=== PATIENT | male | born 1945 | race Caucasian/White ===

== ENCOUNTER → 2023-10-21 11:01 | Outpatient (REF) | payer OTHER, SELFPAY | LOC: HWRCS 11:01 | PROVIDERS: ATTENDING PHYSICIAN Internal Medicine Critical Care Medicine; FAMILY PHYSICIAN Internal Medicine | DX: R01.1 Cardiac murmur, unspecified (principal) | CPT/HCPCS: 93306 ==

== ENCOUNTER → 2024-04-01 13:23 | Outpatient (REF) | payer OTHER, SELFPAY | LOC: HWRAD 13:23 | PROVIDERS: ATTENDING PHYSICIAN Internal Medicine Critical Care Medicine; FAMILY PHYSICIAN Internal Medicine | DX: J44.9 Chronic obstructive pulmonary disease, unspecified (principal); I27.20 Pulmonary hypertension, unspecified | CPT/HCPCS: 71046 ==

== ENCOUNTER 2024-06-11 10:45 | Outpatient (RCR) | payer OTHER, SELFPAY | END 2024-06-15 10:02 | disposition home or self-care (01) | LOC: PURB 10:45 | PROVIDERS: ATTENDING PHYSICIAN Internal Medicine Critical Care Medicine; FAMILY PHYSICIAN Internal Medicine | DX: J44.9 Chronic obstructive pulmonary disease, unspecified (principal); I35.1 Nonrheumatic aortic (valve) insufficiency; I35.0 Nonrheumatic aortic (valve) stenosis; I36.1 Nonrheumatic tricuspid (valve) insufficiency; I27.20 Pulmonary hypertension, unspecified; Z87.891 Personal history of nicotine dependence; Z99.81 Dependence on supplemental oxygen | CPT/HCPCS: G0237; G0239 ==

== ENCOUNTER 2024-07-16 10:45 | Outpatient (RCR) | payer OTHER, SELFPAY | END 2024-07-16 15:00 | disposition home or self-care (01) | LOC: PURB 10:45 | PROVIDERS: ATTENDING PHYSICIAN Internal Medicine Critical Care Medicine; FAMILY PHYSICIAN Internal Medicine | DX: I27.20 Pulmonary hypertension, unspecified (principal); I35.1 Nonrheumatic aortic (valve) insufficiency; I36.1 Nonrheumatic tricuspid (valve) insufficiency; I35.0 Nonrheumatic aortic (valve) stenosis; Z87.891 Personal history of nicotine dependence | CPT/HCPCS: G0239 ==

== ENCOUNTER 2024-08-06 10:45 | Outpatient (RCR) | payer OTHER, SELFPAY | END 2024-08-06 23:59 | disposition home or self-care (01) | LOC: PURB 10:45 | PROVIDERS: ATTENDING PHYSICIAN Internal Medicine Critical Care Medicine; FAMILY PHYSICIAN Internal Medicine | DX: J98.4 Other disorders of lung (principal); J44.9 Chronic obstructive pulmonary disease, unspecified | CPT/HCPCS: G0239 ==

== ENCOUNTER 2024-09-10 10:45 | Outpatient (RCR) | payer OTHER, SELFPAY | END 2024-09-10 23:59 | disposition home or self-care (01) | LOC: PURB 10:45 | PROVIDERS: ATTENDING PHYSICIAN Internal Medicine Critical Care Medicine; FAMILY PHYSICIAN Internal Medicine | DX: J98.4 Other disorders of lung (principal); J44.9 Chronic obstructive pulmonary disease, unspecified; R09.02 Hypoxemia; J98.6 Disorders of diaphragm; Z87.891 Personal history of nicotine dependence; Z87.01 Personal history of pneumonia (recurrent); Z99.81 Dependence on supplemental oxygen | CPT/HCPCS: G0239 ==

== ENCOUNTER 2024-10-02 20:17 | Inpatient (IN) | payer OTHER, SELFPAY ==
[2024-10-02] VITALS (10 sets, daily range): BP systolic 113–147; BP diastolic 61–82; PULSE 2–77; BMI 26.1
[2024-10-02 13:23] LABS: COVID-19 Antigen Positive (Negative)
--- NOTE | 2024-10-02 16:06 | ED.GENMED ---
History of Present Illness
<Harrison Talley MD, Resident - Last Filed: 10/02/24 19:44>
General
Chief Complaint: Breathing Problem
Source: patient and spouse
Exam Limitations: none
Time Seen by Provider: 10/02/24 16:09
Nursing documentation reviewed up to this point in time: agreed with
Travel History
Have you traveled to any high risk areas for coronavirus over the past 14 days?: No
Have you had any contact with someone who has COVID-19?: Yes
Do you have any symptoms of coronavirus? Fever > 100 degrees, chills, cough, shortness of breath, sore throat, loss of taste or smell, muscle aches, or headache?: Yes
History of Present Illness
History of Present Illness:
79-year-old male with PMH of COPD on 3 L nocturnal oxygen, quit smoking 6 years ago, paralyzed right hemidiaphragm, who presents to the emergency department with increased work of breathing and hypoxia. Patient was seen with spouse at bedside, and
reports symptom onset's was last night with severe body aches, chills, nasal congestion, cough, and sore throat. Patient's spouse reports that she treated him with cold and flu medications which helped but did not resolve his symptoms. Patient
also reports worsening chills which is worse than his usual cold after thyroid ablation. He denies chest pain, fever, palpitations, nausea, vomiting, diarrhea, or leg swelling/pain. On arrival, patient was saturating at 88% on 3 L of oxygen NC and
improved to 92% on 4 L O2 NC.
Past History
<Harrison Talley MD, Resident - Last Filed: 10/02/24 19:44>
Past History
ED Past Medical History: COPD, Other (Trauma to left chest wall), Other (erectile dysfunction) and Other (Grave's disease)
ED Past Surgical History: Urological
Patient has exhibited threatening behavior?: No
PSI?: No
Social History
Tobacco: Smoker
Alcohol: Occasional
Personal:
Living: with family
Employment: Employed
Family History
Family History: Other (reviewed and noncontributory)
Review of Systems
<Harrison Talley MD, Resident - Last Filed: 10/02/24 19:44>
Review of Systems
Allergies reviewed?: Yes
All Other Systems: ROS reviewed and negative except as documented in HPI and ROS
Constitutional: Reports fatigue
EENT: Reports no symptoms
Respiratory: Reports trouble breathing
Cardiac: Reports no symptoms
ABD/GI: Reports no symptoms
: Reports no symptoms
Neurological: Reports no symptoms
Phy Exam
<Harrison Talley MD, Resident - Last Filed: 10/02/24 19:44>
General Physical Exam
General Presentation: mild distress
General age: appears stated age
General Skin: warm and dry
General Mental: alert
Cardiovascular Exam
Cardiovascular Exam: regular rate/rhythm and no edema
Pulmonary Exam
Pulmonary Exam: no cough, accessory muscle use, generalized wheezing and respiratory distress (Mild)
Oxygen Status: oxygen 4 liters via NC
Cough: no cough
Breath Sounds: Wheeze: generalized
Gastrointestinal Exam
Gastrointestinal Exam: normal bowel sounds, non tender, soft and non distended
Scores
<Harrison Talley MD, Resident - Last Filed: 10/02/24 19:44>
Heart Failure Risk
Heart Failure Risk Score: Not Applicable
Course
<Harrison Talley MD, Resident - Last Filed: 10/02/24 19:44>
Orders/Labs/Results
Orders:
Orders
10/02/24 12:57
CR Chest - 2 Views Urgent
Comment:
Reason For Exam: respiratory distress
10/02/24 13:00
COVID-19 Antigen Urgent
Source: Nasal Swab
Influenza A+B Rapid Molecular Urgent
DOUGIE Source: Nasal Swab
Specimen Description:
10/02/24 16:56
Albuterol [ProAIR HFA INHALER] 2 puff INH R NOW STA
10/02/24 16:58
Dexamethasone Sod Phosphate [Decadron] 8 mg IV NOW STA
Ipratropium/Albuterol Sulfate [Duoneb] 3 ml INH R NOW ONE
10/02/24 17:01
Basic Metabolic Panel Urgent
Complete Blood Count/With Diff Urgent
10/02/24 17:15
TSH Reflex To Free T4 Urgent
10/02/24 19:32
Admit/Transfer Patient As Directed
Co-Sign Provider:
Level of Care: Inpatient admission
Assign to:: IMU- Intermediate Care
Physician / Group: hospitalist
Diagnosis: acute respiratory failure with COVID 19
Reason for Hospitalization: respiratory failure
Expected length of stay greater than two midnights?: Yes
ELOS- Estimated Length of Stay in days: 2
I certify the patient meets the requirements for IP care: Yes
PRN Pain Medication Management As Directed
May give lesser potent ordered pain med per pt: Yes
preference::
Protocol:: Medication orders for pain may be administered in a
manner that supports deferring to patient preference
when the pt is:
- Requesting an ordered lesser potent pain medication.
Least to most potent pain medications are defined
as: acetaminophen < NSAID < tramadol < opioids
(morphine, oxycodone, hydromorphone).
- Requesting a lesser dose of the same medication IF
ORDERED.
- Requesting a less intrusive route of administration
if both routes are prescribed by the provider (PO <
IV).
10/02/24 19:34
Code Status As Directed
Resuscitation Status: Full Code
Abnormal Lab Results
10/02/24 10/02/24
13:00 17:01
MCV 98.8 H fL
(80.0-94.0)
MCH 32.9 H pg
(27.0-31.0)
Plt Count 110 L 10^3/uL
(130-400)
MPV 10.9 H fL
(7.4-10.4)
Absolute Monos (auto) 0.9 H 10^3/uL
(0.1-0.6)
Lymphocytes % 20.4 L %
(20.5-51.1)
Monocytes % 11.5 H %
(1.7-9.3)
Chloride 96 L mmol/L
(98-107)
Carbon Dioxide 32 H mmol/L
(22-30)
Creatinine 0.6 L mg/dL
(0.7-1.3)
SARS-CoV-2 Antigen Positive A
(Negative)
10/02/24 17:01
10/02/24 17:01
Vital Signs
Initial and Last Documented VS:
Initial Vital Signs
Temp Pulse Resp BP Pulse Ox
98.5 F 74 16 123/69 88
10/02/24 12:54 10/02/24 12:54 10/02/24 12:54 10/02/24 12:54 10/02/24 12:54
Last Documented Vital Signs
Temp Pulse Resp BP Pulse Ox
98.5 F 78 24 116/61 91
10/02/24 12:54 10/02/24 19:00 10/02/24 19:00 10/02/24 19:00 10/02/24 19:00
<Nayana Wong MD - Last Filed: 10/02/24 19:08>
Orders/Labs/Results
Orders:
Orders
10/02/24 12:57
CR Chest - 2 Views Urgent
Comment:
Reason For Exam: respiratory distress
10/02/24 13:00
COVID-19 Antigen Urgent
Source: Nasal Swab
Influenza A+B Rapid Molecular Urgent
DOUGIE Source: Nasal Swab
Specimen Description:
10/02/24 16:56
Albuterol [ProAIR HFA INHALER] 2 puff INH R NOW STA
10/02/24 16:58
Dexamethasone Sod Phosphate [Decadron] 8 mg IV NOW STA
Ipratropium/Albuterol Sulfate [Duoneb] 3 ml INH R NOW ONE
10/02/24 17:01
Basic Metabolic Panel Urgent
Complete Blood Count/With Diff Urgent
10/02/24 17:15
TSH Reflex To Free T4 Urgent
10/02/24 19:32
Admit/Transfer Patient As Directed
Co-Sign Provider:
Level of Care: Inpatient admission
Assign to:: IMU- Intermediate Care
Physician / Group: hospitalist
Diagnosis: acute respiratory failure with COVID 19
Reason for Hospitalization: respiratory failure
Expected length of stay greater than two midnights?: Yes
ELOS- Estimated Length of Stay in days: 2
I certify the patient meets the requirements for IP care: Yes
PRN Pain Medication Management As Directed
May give lesser potent ordered pain med per pt: Yes
preference::
Protocol:: Medication orders for pain may be administered in a
manner that supports deferring to patient preference
when the pt is:
- Requesting an ordered lesser potent pain medication.
Least to most potent pain medications are defined
as: acetaminophen < NSAID < tramadol < opioids
(morphine, oxycodone, hydromorphone).
- Requesting a lesser dose of the same medication IF
ORDERED.
- Requesting a less intrusive route of administration
if both routes are prescribed by the provider (PO <
IV).
10/02/24 19:34
Code Status As Directed
Resuscitation Status: Full Code
Abnormal Lab Results
10/02/24 10/02/24
13:00 17:01
MCV 98.8 H fL
(80.0-94.0)
MCH 32.9 H pg
(27.0-31.0)
Plt Count 110 L 10^3/uL
(130-400)
MPV 10.9 H fL
(7.4-10.4)
Absolute Monos (auto) 0.9 H 10^3/uL
(0.1-0.6)
Lymphocytes % 20.4 L %
(20.5-51.1)
Monocytes % 11.5 H %
(1.7-9.3)
Chloride 96 L mmol/L
(98-107)
Carbon Dioxide 32 H mmol/L
(22-30)
Creatinine 0.6 L mg/dL
(0.7-1.3)
SARS-CoV-2 Antigen Positive A
(Negative)
10/02/24 17:01
10/02/24 17:01
Vital Signs
Initial and Last Documented VS:
Initial Vital Signs
Temp Pulse Resp BP Pulse Ox
98.5 F 74 16 123/69 88
10/02/24 12:54 10/02/24 12:54 10/02/24 12:54 10/02/24 12:54 10/02/24 12:54
Last Documented Vital Signs
Temp Pulse Resp BP Pulse Ox
98.5 F 78 24 116/61 91
10/02/24 12:54 10/02/24 19:00 10/02/24 19:00 10/02/24 19:00 10/02/24 19:00
<Harrison Talley MD, Resident - Last Filed: 10/02/24 19:44>
MDM/Problems Addressed
Differential Diagnosis Includes:
Viral infection including COVID-19, flu, acute COPD exacerbation, acute bronchitis. Pneumonia less likely given negative x-ray. Considered PE due to his tachypnea, and dyspnea. However will hold off on PE workup as patient does not have any
pleuritic chest pain, to have or thigh pain, and swelling
MDM/Problems Addressed:
79-year-old male with PMH of COPD, who presented to the emergency department today with increased work of breathing and hypoxia. He was feeling okay until last night after dinner when he started having cough, chills, body aches, rhinorrhea and a
fever of 100.2. On arrival, patient was saturating at 88% on 3 L oxygen by nasal cannula. Patient uses 3 L oxygen by nasal cannula at home and stated that he usually saturates around 96%. His oxygen saturation improved to 92% on 4 L O2 NC.
Will obtain chest x-ray, CBC, BMP pending.
Will start DuoNebs, and Decadron
Chronic conditions affecting care: COPD
Acute Exacerbation and/or Progression of Chronic Illness: COPD
<Harrison Talley MD, Resident - Last Filed: 10/02/24 19:44>
*Radiology
Radiology exam reviewed: radiology read reviewed (NAD)
*Pulse Oximetry
Patient hypoxic: yes
Comment: 88% on 3 L O2 NC, improved to 93% on 4 L O2 NC
*Critical Care Note
Total Time (30-74mins, 75-104mins- exclusive of procedures): Not Applicable
Data Reviewed
Review of Other/Old Records Reveals: Labs and Records
<Harrison Talley MD, Resident - Last Filed: 10/02/24 19:44>
Update Note
Update Note:
CXR was remarkable for right hemidiaphragm elevation consistent with patient stated paralysis. Given patient's tachypnea with pursed lips breathing, patient was transitioned to BiPAP. Will contact hospitalist to admit patient for COVID infection.
ED Attending Note
<Harrison Talley MD, Resident - Last Filed: 10/02/24 19:44>
-
Portions of this chart may have been created with voice recognition software.� Occasional wrong word or��sound alike� substitutions may have occurred due to the inherent limitations of voice recognition software.
<Nayana Wong MD - Last Filed: 10/02/24 19:08>
ED Attending Note
Patient seen and examined by attending physician: Yes
I performed a history and physical exam of patient and discussed management with resident, I reviewed resident's note and agree with documented findings and plan of care.: Yes
ED Attending Note:
I have seen and evaluated the patient with a [id number]-sw-[id number] encounter. I have spoken to the [resident] and involved in the medical history, the physical exam, medical decision making.
Evaluation and management service: agree unless noted differently below.
Results interpretation: agree unless noted differently below.
79-year-old male with history of COPD on nocturnal oxygen presented to the emergency department with cough. Patient states that yesterday he was feeling fine up until the evening when he had sudden onset of cough congestion runny nose body aches
and chills. This morning he woke up with the ongoing symptoms today brought him in for further evaluation. He denies any chest pain or shortness of breath. No nausea vomiting. No diarrhea. He has been in contact with few people who have been
sick with similar symptoms. He did not take his albuterol today.
GENERAL: in no acute distress
HEENT: normocephalic, extraocular movements intact, moist oral mucosa
NECK: normal inspection
RESPIRATORY: Mild respiratory distress, tachypneic, pursed lip breathing, diminished breath sounds in all lung farr
CARDIOVASCULAR: regular rate and rhythm
ABDOMEN/: soft, non-distended, non-tender to palpation, no rebound or guarding
EXTREMITIES: non-tender, no edema/swelling
NEUROLOGIC: awake and alert, moves all extremities
SKIN: warm
79-year-old male with history of COPD on nocturnal oxygen presenting to the emergency department with 1 day of cough congestion runny nose body aches and chills. On arrival here patient was 88%. He was placed on nasal cannula. During my
evaluation patient is on 4 L and he will be anywhere from 89% to 92%. Concern for viral infection versus pneumonia for COPD exacerbation. Swabs were obtained prior to my evaluation. He is COVID-positive. Chest x-ray per my interpretation with
elevated right hemidiaphragm consistent with patient's paralysis. Will obtain blood work and give Decadron and a DuoNeb. Consider initiating BiPAP given tachypnea and pursed lip breathing however will start off with DuoNeb.
On reevaluation patient continues to have mild respiratory distress with pursed lip breathing and use of accessory muscles. Patient placed on BiPAP. On reassessment patient appears much more comfortable. Blood work is unremarkable. discussed
with hospitalist for admission.
Discharge Plan
Departure
Patient Disposition: Admit
Date of Disposition: 10/02/24
Time of Disposition: 18:56
Presentation/result/management discussed w/ accepting MD/DO: Hospitalist
Patient with high blood pressure during this ER visit?: Yes
Condition: Fair
Covid-19: Confirmed COVID-19
Discharge Problem:
History of prostate cancer, Former smoker, Hypoxia, Paralysis, diaphragm, COPD exacerbation, COVID-19
Instructions: Shortness of Breath (Dyspnea) (DC), BLOOD PRESSURE
Prescriptions:
No Action
ibuprofen 200 mg Tablet
400 mg PO DAILYPRN PRN (Reason: mild pain)
albuterol sulfate 90 mcg/actuation Hfa Aerosol Inhaler
2 puff INHALATION R Q6HPRN PRN (Reason: sob)
levothyroxine [Synthroid] 112 mcg Tablet
112 mcg PO DAILY
Asmanex Twisthaler 220 mcg/ actuation (120) Aerosol Powdr Breath Activated
2 inh INHALATION R BID
calcium carbonate-vitamin D3 [Calcium 600 + D(3)] 600 mg-10 mcg (400 unit) Tablet
1 tab PO NOON Qty: 0
guaifenesin [Mucinex] 1,200 mg Tablet Extended Release 12hr
600 mg PO BIDPRN PRN (Reason: cough)
coQ10 (ubiquinol) [Qunol Moi CoQ10] 100 mg Capsule
100 mg PO NOON Qty: 0
Stiolto Respimat 2.5-2.5 mcg/actuation Mist
2 puff INHALATION R QPM
gphvz-as-4-ihv-iov-wstlaxi-ast [[place]-3 Krill Oil] 233-41-87-50 mg Capsule
1 cap PO QPM Qty: 0
Centrum Silver Men 671-04-939-300 mcg Tablet
1 tab PO NOON
Referrals:
Chelsey Mak MD [Family Provider] -
Interventions
Interventions:
*Risk Screen - Suicide Last Done: 10/02/24 12:54
*Neglect/Abuse Screening Last Done: 10/02/24 12:54
ED- Fall Risk Assessment Last Done: 10/02/24 16:03
ED- Cardiac Assessment Last Done: 10/02/24 16:03
ED- Pulmonary Assessment Last Done: 10/02/24 16:03
Discharge Date and Time
Print Language: UKRAINIAN
[2024-10-02] MEDS: DECADRON 8 MG IV (17:01)
[2024-10-02] MEDS: DUONEB 3 ML INH (17:01)
[2024-10-02 17:31] LABS: Blood Urea Nitrogen 13 mg/dl (9-20); Calcium 8.5 mg/dl (8.4-10.2); Carbon Dioxide 32 mmol/L (22-30); Chloride 96 mmol/L (98-107); Glucose 93 mg/dl (70-99); Sodium 135 mmol/L (135-145); eGFR > 60.00
[2024-10-02 17:36] LABS: % Basophils 0.5 % (0-2); % Eosinophils 0.1 % (0-6); % Immature Granulocytes 0.3 % (0-0.5); % Lymphocytes 20.4 % (20.5-51.1); % Monocytes 11.5 % (1.7-9.3); % Neutrophils 67.2 % (42.2-75.2); Absolute Lymphocytes 1.5 10^3/uL (1.2-3.4); Absolute Monocytes 0.9 10^3/uL (0.1-0.6); Hematocrit 50.1 % (39.0-52.0); Hemoglobin 16.7 g/dL (13.0-18.0); Mean Corp Hgb Conc. 33.3 g/dL (33.0-37.0); Mean Corpuscular Hgb 32.9 pg (27.0-31.0); Mean Corpuscular Volume 98.8 fL (80.0-94.0); Mean Platelet Volume 10.9 fL (7.4-10.4); Nucleated Red Blood Cells % 0 % (-); Platelet Count 110 10^3/uL (130-400); Red Blood Cell Count 5.07 10^6/uL (4.70-6.10); Red Cell Dist. Width 12.4 % (11.5-14.5); White Blood Cell Count 7.4 10^3/uL (4.8-10.8)
[2024-10-02 18:02] LABS: TSH Reflex To Free T4 0.83 uIU/ml (0.47-4.68)
--- NOTE | 2024-10-02 19:21 | HPS.HSE ---
Family Physician
-
Family Physician: Chelsey Mak
Chief Complaint
-
Shortness of breath
History of Present Illness
This is an 79-year-old who has past medical history significant for COPD on 3 L nocturnal home O2, a collapsed right diaphragm, Graves' disease status post thyroid ablation with subsequent hypothyroid presenting to the emergency department with
fever and shortness of breath and found to have COVID.
A symptoms began abruptly yesterday. He reported to his that he did not feel well. He was slowing down and after dinner he was reported to have crashed. He reported a fever to 100.6 at home. He had chills and generalized aches and pains.
Family thought that he might have had the flu and he was giving dliw-vpd-khbyzkr medications with initial improvement. Patient was able to sleep. In the a.m. he felt worse and family decided to bring him to the emergency department later on that
day. He desatted to 88% en route to the emergency department. Denies any productive cough. No clear sick contacts. No recent travel. He denies any chest pain, orthopnea or PND.
Patient had undergone pulmonary rehab and was able to exercise for several minutes on a treadmill prior to this episode.
In the emergency department he had a temp of 98.5 blood pressure 147/80 with a pulse of 83. He was satting 91% on supplemental oxygen. He was immediately placed on BiPAP in the ED. Chest x-ray was unremarkable for any acute infiltrates. CBC
shows no leukocytosis normal hemoglobin and platelet count. Electrolytes BUN/creatinine were unremarkable. COVID test was positive. Influenza was negative.
Medical History
Past Medical History
Past Medical History: Reports Cancer (Prostate cancer status post prostatectomy), COPD (On 3 L nocturnal O2) and Hypothyroidism
Additional Past Medical History:
Right diaphragmatic paralysis
Past Surgical History: Reports Urological (Prostatectomy)
Social History
Tobacco: Former Smoker
Alcohol: None
Drug: None
Personal:
Living: With Family
Employment: Retired
Family History
Family History: Not pertinent
Allergies / Home Medications
Allergies reflects when Allergies were last updated in [employer].
Home Medications with original date entered in [employer]
Allergy/Medication List:
Allergies
Allergy/AdvReac Type Severity Reaction Status Date / Time
No Known Allergies Allergy Verified 10/02/24 12:53
Home Medications
albuterol sulfate 90 mcg/actuation aerosol inhaler 2 puff inhalation R Q6HPRN PRN sob 09/27/23
calcium 600 mg (as carbonate)-vitamin D3 10 mcg (400 unit) tablet (Calcium 600 + D(3)) 1 tab PO NOON ##0 09/27/23
coQ10 (ubiquinol) 100 mg capsule (Qunol Moi CoQ10) 100 mg PO NOON ##0 09/27/23
guaifenesin 1,200 mg tablet, extended release 12 hr (Mucinex) 600 mg PO BIDPRN PRN cough 09/27/23
ibuprofen 200 mg tablet 400 mg PO DAILYPRN PRN mild pain 09/27/23
krill 350 mg-omega-3 90 mg-dha 24 mg-epa 50 wo-jwvkqzm-guefs capsule ([place]-3 Krill Oil) 1 cap PO QPM ##0 09/27/23
levothyroxine 112 mcg tablet (Synthroid) 112 mcg PO DAILY 09/27/23
mometasone 220 mcg/actuation(120 doses)breath activated powder inhaler (Asmanex Twisthaler) 2 inh inhalation R BID 09/27/23
fogniixw-ze-oepqy 300 mcg-K 60 mcg-lycop 600 mcg-lutein 300 mcg tablet (Centrum Silver Men) 1 tab PO NOON supplement 09/27/23
tiotropium 2.5 mcg-olodaterol 2.5 mcg/actuation mist for inhalation (Stiolto Respimat) 2 puff inhalation R QPM 09/27/23
Review of Systems
-
History Source: Patient and Family
Constitutional: Reports Fever
EENT: Reports No Symptoms
Respiratory: Reports Trouble Breathing
Cardiac: Reports No Symptoms
Abdomen/GI: Reports No Symptoms
: Reports No Symptoms
Musculoskeletal: Reports No Symptoms
Skin: Reports No Symptoms
Neurological: Reports No Symptoms
Endocrine: Reports No Symptoms
Hematologic/Lymphatic: Reports No Symptoms
Psych: Reports No Symptoms
Physical Exam
Vital Signs
Vital Signs
Temp Pulse Resp BP Pulse Ox
98.5 F 78 24 116/61 91
10/02/24 12:54 10/02/24 19:00 10/02/24 19:00 10/02/24 19:00 10/02/24 19:00
Physical Exam
General: Well Developed, Well Nourished and Respiratory Distress
HEENT: NormoCephalic, Anicteric, Moist mucous membranes, Atraumatic, PERRLA, No Ptosis and Oxygen
Respiratory: Clear, Non Labored Respirations and Decreased Breath Sounds
Cardiac: S1/S2 and Regular Rhythm
Breast: Deferred by me
GI: Soft, Non Tender, Non Distended and Normal Bowel Sounds
Rectal: Deferred by Provider
Genito-urinary: Deferred by me
Musculoskeletal: No Clubbing, No Cyanosis and No Edema
Skin: Warm and Dry
Neuro: AO x 3 and Nonfocal/grossly intact
Hematologic/Lymphatic: No Lymphadenopathy
Psych: Calm
Laboratory Results
-
10/02/24 17:01
10/02/24 17:01
Laboratory Results
pH Cancelled 10/02/24 16:56
pCO2 Cancelled 10/02/24 16:56
pO2 Cancelled 10/02/24 16:56
HCO3 Cancelled 10/02/24 16:56
Data Reviewed
-
Diagnostic Radiology: Image Personally Visualized and interpreted and Report Reviewed by me
Lab Data: Labs Reviewed by me
Old Records: Reviewed
Impression/Plan
-
IMPRESSION:
79 y.o male with h/o COPD on 3 L nocturnal home O2, R diaphragm paralysis presenting with fever at home, hypoxia, respiratory distress and found to have COVID 19. No acute infiltrates on Xray. Acute onset of symptoms starting about 24 hours ago.
No wheezing, cough, leukocytosis. Placed on BIPAP in ED due to rapid shallow breathing that appears to be common for him. Given degree of underlying pulmonary compromise and hypoxia he is at very high risk for decompensation. He reports up to
date COVID immunizations.
PLAN:
1. COVID 19 infection with acute on chronic respiratory failure.
- admit to IMU
- dexamethasone 6mg iv
- remdesivir
- continue bipap 10/5 for now, 6 L O2, wean as tolerated
- continue home tiotropium, and LABA
- morning blood gas
- pulmonary consult
DVT PPX - lovenox
Code status - full code
[2024-10-02] MEDS: VEKLURY 250 MG IV (22:03)
[2024-10-02] MEDS: MUCINEX 600 MG PO (22:03)
[2024-10-02] MEDS: LOVENOX 40 MG SC (22:03)
[2024-10-02] MEDS: ROBITUSSIN DM 10 ML PO (22:08)
[2024-10-03] VITALS (13 sets, daily range): BP systolic 94–158; BP diastolic 55–111; PULSE 2–74
[2024-10-03 04:25] LABS: Venous Blood Gas B.E. 2.4 mmol/L (-4 to +4); Venous Blood Gas HCO3 28.9 mmol/L (22-27); Venous Blood Gas O2 Sat % 99.5 %; Venous Blood Gas pCO2 50 mmHg (35-48); Venous Blood Gas pH 7.37 (7.32-7.43); Venous Blood Gas pO2 159 mmHg (30-50)
[2024-10-03 04:31] LABS: Venous Blood Gas O2 Therapy 40%
[2024-10-03 04:44] LABS: INR 1.17; PT 15.2 Sec (11.4-14.6)
[2024-10-03 05:08] LABS: ALT (SGPT) 13 U/L (0-50); AST (SGOT) 23 U/L (17-59); Albumin 3.9 g/dl (3.5-5.0); Alkaline Phosphatase 57 U/L (38-126); Blood Urea Nitrogen 12 mg/dl (9-20); Calcium 8.6 mg/dl (8.4-10.2); Carbon Dioxide 29 mmol/L (22-30); Chloride 99 mmol/L (98-107); Estimated Creatinine Clearance 90 ml/min; Glucose 142 mg/dl (70-99); LDH 151 U/L (120-246); Magnesium 1.9 mg/dl (1.6-2.3); Potassium 4.4 mmol/L (3.5-5.1); Sodium 136 mmol/L (135-145); Total Bilirubin 0.6 mg/dl (0.2-1.3); Total Protein 6.2 g/dl (6.3-8.2); eGFR > 60.00
[2024-10-03] MEDS: SYNTHROID 112 MCG PO (05:42)
--- NOTE | 2024-10-03 08:14 | W.PN.HOSP.TC ---
Today's Communication/Plan
-
see bold
Assessment / Plan
Assessment / Plan
79 y.o male with h/o COPD on 3 L nocturnal home O2, R diaphragm paralysis presenting with fever at home, hypoxia, respiratory distress and found to have COVID 19. No acute infiltrates on Xray. Acute onset of symptoms starting about 24 hours ago.
No wheezing, cough, leukocytosis. Placed on BIPAP in ED due to rapid shallow breathing that appears to be common for him. Given degree of underlying pulmonary compromise and hypoxia he is at very high risk for decompensation. He reports up to
date COVID immunizations.
#Acute coronavirus infection
#Acute on chronic hypoxic respiratory failure
#COPD on 3 L of oxygen at baseline
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
#Former smoker
Patient is up-to-date with COVID vaccinations
Currently on BiPAP, wean as tolerated
Pulmonology consulted, continue IV steroids, IV remdesivir, bronchodilators
#Hypothyroidism
#History of Graves' disease
Continue Synthroid
#History prostate cancer status post prostatectomy
DVT PPX -subcu Lovenox
Code status - Full code
Total time spent to see the patient on the floor, examine the patient, review data and lab results, discuss treatment plan with patient, nursing staff around 45 minutes.
Physical Exam
General: Appears to not feel well, no acute distress
HEENT: Normocephalic, Atraumatic, EOMI, MMM
Respiratory: Clear to Auscultation bilaterally
Cardiac: Normal S1/S2, Regular Rate and Rhythm
GI: Soft, Nontender, Nondistended, Normal Bowel Sounds
Extremities: No Clubbing, Cyanosis, or Edema
Neuro: Nonfocal/Grossly Intact
Psych: Calm, Cooperative
Derm: No Visible lesions
Anticipated Discharge: > 48 hours
Subjective/Interval History
-
Date of Service: October 03, 2024
Patient continues to cough, productive. Denies shortness of breath, denies chest pain. No fever, no vomiting.
Objective Data
-
Labs:
Laboratory Results
10/03/24
04:09
PT 15.2 H
INR 1.17
Sodium 136
Potassium 4.4
Chloride 99
Carbon Dioxide 29
BUN 12
Creatinine 0.6 L
Glucose 142 H
Calcium 8.6
Total Bilirubin 0.6
AST 23
ALT 13
Alkaline Phosphatase 57
Vital Signs:
Vital Signs
Temp Pulse Resp BP Pulse Ox
97.7 F 69 19 99/63 92
10/03/24 04:15 10/03/24 06:45 10/03/24 06:45 10/03/24 06:00 10/03/24 06:45
I&O
10/02/24 10/03/24 10/04/24
06:59 06:59 06:59
Intake Total 250 / 250
Output Total 550 / 550
Balance -300 / -300
[2024-10-03] MEDS: DECADRON 6 MG IV (09:36)
[2024-10-03] MEDS: MUCINEX 600 MG PO ×2 (09:37→19:24)
[2024-10-03] MEDS: VEKLURY 250 MG IV (13:17)
[2024-10-03] MEDS: LOVENOX 40 MG SC (19:24)
[2024-10-03] MEDS: SPIRIVA RESPIMAT 2.5 MCG 2 PUFF INH (19:44)
[2024-10-03] MEDS: STRIVERDI RESPIMAT 2 PUFF INH (19:44)
[2024-10-04] VITALS (13 sets, daily range): BP systolic 105–152; BP diastolic 60–103
[2024-10-04] MEDS: SYNTHROID 112 MCG PO (05:35)
--- NOTE | 2024-10-04 07:54 | W.PN.HOSP.TC ---
Today's Communication/Plan
-
see bold
Assessment / Plan
Assessment / Plan
79 y.o male with h/o COPD on 3 L nocturnal home O2, R diaphragm paralysis presenting with fever at home, hypoxia, respiratory distress and found to have COVID 19. No acute infiltrates on Xray. Acute onset of symptoms starting about 24 hours ago.
No wheezing, cough, leukocytosis. Placed on BIPAP in ED due to rapid shallow breathing that appears to be common for him. Given degree of underlying pulmonary compromise and hypoxia he is at very high risk for decompensation. He reports up to
date COVID immunizations.
#Acute coronavirus infection
#Acute on chronic hypoxic respiratory failure
#COPD on 3 L of oxygen at baseline
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
#Former smoker
Patient is up-to-date with COVID vaccinations
Status post BiPAP, currently on 6 L of oxygen. He wears 3 L of oxygen at night at baseline
Continue dexamethasone 6 mg IV day 3, remdesivir day 3, bronchodilators
#Hypothyroidism
#History of Graves' disease
Continue Synthroid
#History prostate cancer status post prostatectomy
DVT PPX -subcu Lovenox
Code status - Full code
Updated [id number] on phone 10/04
Total time spent to see the patient on the floor, examine the patient, review data and lab results, discuss treatment plan with patient, nursing staff around 42 minutes.
Physical Exam
General: No acute distress
HEENT: Normocephalic, Atraumatic, EOMI, MMM
Respiratory: Clear to Auscultation bilaterally
Cardiac: Normal S1/S2, Regular Rate and Rhythm
GI: Soft, Nontender, Nondistended, Normal Bowel Sounds
Extremities: No Clubbing, Cyanosis, or Edema
Neuro: Nonfocal/Grossly Intact
Psych: Calm, Cooperative
Derm: No Visible lesions
Anticipated Discharge: > 48 hours
Subjective/Interval History
-
Date of Service: October 04, 2024
Patient denies chest pain, denies shortness of breath. He does have a productive cough, that is improving. No nausea, no vomiting. No abdominal pain. No diarrhea. No fever.
Objective Data
-
Vital Signs:
Vital Signs
Temp Pulse Resp BP Pulse Ox
97.6 F 77 17 105/63 93
10/04/24 03:00 10/04/24 04:00 10/04/24 04:00 10/04/24 04:00 10/04/24 04:00
I&O
10/03/24 10/04/24 10/05/24
06:59 06:59 06:59
Intake Total 250 / 250 730 / 730
Output Total 550 / 550 1175 / 1175
Balance -300 / -300 -445 / -445
[2024-10-04] MEDS: MUCINEX 600 MG PO ×2 (09:24→19:44)
[2024-10-04] MEDS: DECADRON 6 MG IV (09:24)
[2024-10-04] MEDS: VEKLURY 250 MG IV (13:22)
--- NOTE | 2024-10-04 16:16 | CM ---
CM reviewed chart, placed call to patients Camelia [phone] to complete initial assessment. Per , patient resides in a single story home, no steps to enter. Patient does not use any DME, has nocturnal O2 through [address] [place] [address] in
[place]. Patient has history with VN, denies SNF. Patient PCP Chelsey Mak, pharmacy [facility], confirms prescription coverage through [place]. requesting PT/OT to work with patient when medically able, asking for update from Hospitalist
when able. CM will continue to follow for all discharge planning needs.
Plan; home with , watch for VN needs vs SNF.
[2024-10-04] MEDS: LOVENOX 40 MG SC (19:44)
[2024-10-04] MEDS: SPIRIVA RESPIMAT 2.5 MCG 2 PUFF INH (20:03)
[2024-10-04] MEDS: STRIVERDI RESPIMAT 2 PUFF INH (20:04)
[2024-10-05] VITALS (12 sets, daily range): BP systolic 87–143; BP diastolic 58–97; PULSE 101; O2SAT 93
--- NOTE | 2024-10-05 03:13 | PTCARENOTE ---
PT appearing to get rest through out night, respirations even unlabored. Pt continues on 6L NC, Spo2 91-93% dependant on position. Pt has no complaints at this time. Assessment care and vitals as charted.
[2024-10-05] MEDS: SYNTHROID 112 MCG PO (05:32)
[2024-10-05 05:56] LABS: Hematocrit 51.6 % (39.0-52.0); Hemoglobin 17.3 g/dL (13.0-18.0); Mean Corp Hgb Conc. 33.5 g/dL (33.0-37.0); Mean Corpuscular Hgb 32.4 pg (27.0-31.0); Mean Corpuscular Volume 96.6 fL (80.0-94.0); Mean Platelet Volume 11.2 fL (7.4-10.4); Platelet Count 139 10^3/uL (130-400); Red Blood Cell Count 5.34 10^6/uL (4.70-6.10); Red Cell Dist. Width 12.1 % (11.5-14.5)
[2024-10-05 06:29] LABS: ALT (SGPT) 16 U/L (0-50); AST (SGOT) 27 U/L (17-59); Albumin 3.6 g/dl (3.5-5.0); Alkaline Phosphatase 55 U/L (38-126); Blood Urea Nitrogen 26 mg/dl (9-20); Carbon Dioxide 33 mmol/L (22-30); Chloride 98 mmol/L (98-107); Estimated Creatinine Clearance 90 ml/min; Glucose 129 mg/dl (70-99); Potassium 4.7 mmol/L (3.5-5.1); Sodium 137 mmol/L (135-145); Total Bilirubin 0.6 mg/dl (0.2-1.3); Total Protein 5.8 g/dl (6.3-8.2); eGFR > 60.00
[2024-10-05 06:39] LABS: Procalcitonin < 0.05 ng/ml (0.0-0.25)
[2024-10-05] MEDS: DECADRON 6 MG IV (08:43)
[2024-10-05] MEDS: MUCINEX 600 MG PO ×2 (08:44→20:19)
--- NOTE | 2024-10-05 11:38 | W.PN.HOSP.TC ---
Addendum entered and electronically signed by Jomar Michelle MD 10/06/24 10:12:
.
Original Note:
Today's Communication/Plan
-
see bold
Assessment / Plan
Assessment / Plan
79 y.o male with h/o COPD on 3 L nocturnal home O2, R diaphragm paralysis presenting with fever at home, hypoxia, respiratory distress and found to have COVID 19. No acute infiltrates on Xray. Acute onset of symptoms starting about 24 hours ago.
No wheezing, cough, leukocytosis. Placed on BIPAP in ED due to rapid shallow breathing that appears to be common for him. Given degree of underlying pulmonary compromise and hypoxia he is at very high risk for decompensation. He reports up to
date COVID immunizations.
Gen: NAD, AAOx3.
Eyes: EOMI, PERRLA, no scleral icterus.
Neck: supple.
CV: RRR, +S1/S2, no m/r/g.
Resp: distant BS CTAB, no rales, wheezes, or rhonchi.
Abd: +BS, soft, NT, ND
Skin: No rashes.
Neuro: CN 2-12 intact, non-focal.
Psych: Normal mood and affect.
CXR: No acute cardiopulmonary process.
Acute on chronic hypoxic respiratory failure due to acute COVID infection:
-underlying COPD on 3L NC O2 HS (former smoker), chronic right diaphragmatic paralysis due to trauma of right chest wall
-up-to-date with COVID vaccinations
-was on BiPAP, currently on 5-6L NC O2
-cont Decadron
-currently on Remdesivir, will stop as unlikely to be of any benefit
-c/s pulm
-cont Spiriva/Striverdi
Hypothyroidism:
-h/o Graves' disease
-cont Synthroid
h/o prostate CA s/p prostatectomy
FULL/Lovenox
Anticipated Discharge: 24 - 48 hours
Subjective/Interval History
-
Date of Service: October 05, 2024
Denies SOB.
Objective Data
-
Labs:
Laboratory Results
10/05/24
05:34
WBC 11.0 H
Hgb 17.3
Hct 51.6
Plt Count 139 D
Sodium 137
Potassium 4.7
Chloride 98
Carbon Dioxide 33 H
BUN 26 H
Creatinine 0.6 L
Glucose 129 H
Calcium 9.0
Total Bilirubin 0.6
AST 27
ALT 16
Alkaline Phosphatase 55
Vital Signs:
Vital Signs
Temp Pulse Resp BP Pulse Ox
97.3 F 68 19 121/80 94
10/05/24 07:19 10/05/24 06:00 10/05/24 06:00 10/05/24 06:00 10/05/24 06:00
I&O
10/04/24 10/05/24 10/06/24
06:59 06:59 06:59
Intake Total 730 / 730 200 / 200
Output Total 1175 / 1175 1100 / 1100
Balance -445 / -445 -900 / -900
--- NOTE | 2024-10-05 11:54 | CM ---
CM following re: discharge planning.
Reviewed pt's chart.
Per chart review, pt's spouse is requested pt be evaluated by PT and OT.
PT and OT consults requested.
D/C plan: awaiting for PT/OT evaluations and recommendations.
CM will follow with discharge plan updates as hospitalization progresses
[2024-10-05] MEDS: VEKLURY IV (13:17)
--- NOTE | 2024-10-05 15:48 | CON.PUL ---
Consultation
Consultation Request
Date/Time Consultation Requested: 10/05/24
Date/Time Consultation Performed: 10/05/24
Performing Provider: Kristina
Reason for Consultation: COVID
Medical History
-
History of Present Illness:
Patient is an 79-year-old male with past medical history of COPD on 3 L nocturnal O2, Graves' disease presenting to the ER with fever and shortness of breath. He has noted to be COVID-positive. He was notably hypoxemic, placed on 6 L. Chest x-ray
was unremarkable. He has never had COVID before. He routinely obtains his vaccinations. He follows with Dr. Garcia in the office.
Past Medical History
Past Medical History: Other (see list below)
Social History
Tobacco: Former Smoker
Alcohol: None
Drug: None
Family History
Family History: Reviewed & Not Pertinent
Allergies / Home Medications
Allergies
Allergy/AdvReac Type Severity Reaction Status Date / Time
No Known Allergies Allergy Verified 10/02/24 12:53
Home Medications
�Medication �Instructions �Recorded �Confirmed �Last Taken �Type
albuterol sulfate 90 mcg/actuation 2 puff inhalation R Q6HPRN PRN sob 09/27/23 10/02/24 09/26/23 History
aerosol inhaler
calcium 600 mg (as 1 tab PO NOON ##0 09/27/23 10/02/24 09/26/23 History
carbonate)-vitamin D3 10 mcg (400
unit) tablet (Calcium 600 + D(3))
coQ10 (ubiquinol) 100 mg capsule 100 mg PO NOON ##0 09/27/23 10/02/24 09/26/23 History
(Qunol Moi CoQ10)
guaifenesin 1,200 mg tablet, 600 mg PO BIDPRN PRN cough 09/27/23 10/02/24 2 Days Ago History
extended release 12 hr (Mucinex) ~09/25/23
ibuprofen 200 mg tablet 400 mg PO DAILYPRN PRN mild pain 09/27/23 10/02/24 09/26/23 History
krill 350 mg-omega-3 90 mg-dha 24 1 cap PO QPM ##0 09/27/23 10/02/24 09/25/23 History
mg-epa 50 xg-jugqfgg-gzguz capsule
([place]-3 Krill Oil)
levothyroxine 112 mcg tablet 112 mcg PO DAILY 09/27/23 10/02/24 09/27/23 History
(Synthroid)
mometasone 220 mcg/actuation(120 2 inh inhalation R BID 09/27/23 10/02/24 09/26/23 History
doses)breath activated powder
inhaler (Asmanex Twisthaler)
qjcojogq-vh-hvbaw 300 mcg-K 60 1 tab PO NOON supplement 09/27/23 10/02/24 09/25/23 History
mcg-lycop 600 mcg-lutein 300 mcg
tablet (Centrum Silver Men)
tiotropium 2.5 mcg-olodaterol 2.5 2 puff inhalation R QPM 09/27/23 10/02/24 09/26/23 History
mcg/actuation mist for inhalation
(Stiolto Respimat)
Review of Systems
-
History Source: Patient
All other systems: Negative unless noted
Vitals / Labs / Diagnostic Testing
Vital Signs
Temp Pulse Resp BP Pulse Ox
97.3 F 96 23 123/97 93
10/05/24 07:19 10/05/24 14:01 10/05/24 14:01 10/05/24 14:01 10/05/24 15:39
Lab Data
10/05/24 05:34
10/05/24 05:34
Microbiology
10/02/24 13:00 Nasal Swab Influenza Types A & B (DAQUAN) - Final
Negative for Influenza A & B, NAAT
Negative results must be combined with clinical observations
and patient history.
Nucleic Acid Amplification test (NAAT)performed on the
[employer] platform.
Diagnostic Testing:
Physical Exam
-
HEENT: Normocephalic, Anicteric and Moist Mucous Membranes
Cardiovascular: S1/S2 and Regular Rhythm
Respiratory: Clear and Non-Labored Respirations
GI: Soft, Non Distended and Non Tender
Neurology: Awake, Alert, Oriented and No Motor Deficits
Skin: Warm, Dry and Good Color
General: Comfortable and Other (NAD)
Assessment
-
Patient is an 79-year-old male with past medical history of COPD on 3 L nocturnal O2, Graves' disease presenting to the ER with fever and shortness of breath. He has noted to be COVID-positive. He was notably hypoxemic, placed on 6 L. Chest x-ray
was unremarkable. He has never had COVID before. He routinely obtains his vaccinations. He follows with Dr. Garcia in the office.
Acute on chronic resp failure
Acute COVID+ illness
Acute on chronic SOB
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
COPD (on Noct home O2)
Trauma to right chest wall with paralyzed right dome of diaphragm
Grave's disease
Former smoker, 2-3 ppwk for 40 y, quit 5-6 y ago
Plan
Continue O2 protocol, currently 93% on 6L NC
Already on nocturnal O2 at home: 3LPM
Wean as tolerated back to baseline use
Note CXR clear on admission, has chronic R elev HD
Currently on IV steroids and mucinex
Resumed on home inhalers
Does not appear in acute exac COPD
PCT negative, no clear evidence for abx
Isolation per hospital protocol
No treatment recs for inpatient admissions for COVID, just symptomatic treatment
Continue to monitor inflammatory markers as indicated
Follow fever curve
CXR reviewed--Repeat only as necessary to limit testing/exposures
F/u with Dr Garcia in 3-4 wks post discharge
D/w Mr Zuniga, all questions answered to satisfaction
We will follow
Diagnostic Data:
CXR 10/02/24- No acute cardiopulmonary process.
CXR 09-27-23 c/w 09-09-22: baseline with no infiltrates. New R basilar infiltrate vs fluid
LDCT 03-09-21: no lung nodules
Total time spent on this consultation __75__ minutes which includes review of history, physical exam, medications, laboratory data, personal review of imaging, extensive review of outpatient records, discussion with care team and respiratory therapy.
--- NOTE | 2024-10-05 17:46 | PTCARENOTE ---
pt downgraded to med surg. transferring to [address] [place] [address]. report given to Savi.
[2024-10-05] MEDS: STRIVERDI RESPIMAT 2 PUFF INH (19:23)
[2024-10-05] MEDS: SPIRIVA RESPIMAT 2.5 MCG 2 PUFF INH (19:24)
[2024-10-05] MEDS: LOVENOX 40 MG SC (20:19)
--- NOTE | 2024-10-05 23:05 | PTCARENOTE ---
Received patient at change of shift via a transfer from IMU, he is AAOx3 offering no complaints, currently on 5l of 02 pulse ox stable, he was up in chair having his dinner, no skin issues, coarse lung sounds, bedside suction provided to patient per
his request. no pain
[2024-10-06] MEDS: SYNTHROID 112 MCG PO (06:10)
[2024-10-06 07:13] VITALS: BP 106/63
--- NOTE | 2024-10-06 09:04 | W.PN.HOSP.TC ---
Today's Communication/Plan
-
d/c
Assessment / Plan
Assessment / Plan
79 y.o male with h/o COPD on 3 L nocturnal home O2, R diaphragm paralysis presenting with fever at home, hypoxia, respiratory distress and found to have COVID 19. No acute infiltrates on Xray. Acute onset of symptoms starting about 24 hours ago.
No wheezing, cough, leukocytosis. Placed on BIPAP in ED due to rapid shallow breathing that appears to be common for him. Given degree of underlying pulmonary compromise and hypoxia he is at very high risk for decompensation. He reports up to
date COVID immunizations.
Gen: NAD, AAOx3.
Eyes: EOMI, PERRLA, no scleral icterus.
Neck: supple.
CV: remains RRR, +S1/S2, no m/r/g.
Resp: CTAB anteriorly, no rales, wheezes, or rhonchi.
Abd: +BS, soft, NT, ND
Skin: No rashes.
Neuro: remains CN 2-12 intact, non-focal.
Psych: Normal mood and affect.
CXR: No acute cardiopulmonary process.
Acute on chronic hypoxic respiratory failure due to acute COVID infection:
-no acute exac of COPD as per pulm
-underlying COPD on 3L NC O2 HS (former smoker), chronic right diaphragmatic paralysis due to trauma of right chest wall
-up-to-date with COVID vaccinations
-was on BiPAP, currently on 4L NC O2
-has been on Decadron. Case discussed with Dr. Acevedo and she is OK with d/c today on Prednisone. Pt can wean O2 at home.
-was on Remdesivir which was stopped 10/05/24 as unlikely was of any benefit
-cont Spiriva/Striverdi
Hypothyroidism:
-h/o Graves' disease
-cont Synthroid
h/o prostate CA s/p prostatectomy
FULL/Lovenox
Total time spent on d/c = 34 min. This included today's physical exam, progress note, review of laboratory and diagnostic data, preparation of discharge documents and prescriptions, and discussions about the pt's hospital course and discharge plan
with the patient and other front office medical assistant involved in the patient's care.
Anticipated Discharge: Today
Subjective/Interval History
-
Date of Service: October 06, 2024
Denies SOB.
Objective Data
-
Vital Signs:
Vital Signs
Temp Pulse Resp BP Pulse Ox
97.8 F 68 17 106/63 94
10/06/24 07:13 10/06/24 07:13 10/06/24 07:13 10/06/24 07:13 10/06/24 07:13
I&O
10/05/24 10/06/24 10/07/24
06:59 06:59 06:59
Intake Total 200 / 200 480 / 480
Output Total 1100 / 1100
Balance -900 / -900 480 / 480
[2024-10-06] MEDS: DECADRON 6 MG IV (09:16)
[2024-10-06] MEDS: MUCINEX 600 MG PO (09:17)
--- NOTE | 2024-10-06 10:33 | CM ---
Patient seen at bedside.
Discussed VN - PT rec home PT vs. no needs
Patient declining VN
IMM explained & signed. In chart.
PLAN: Discharge to home, declines VN
or son to transport
[2024-10-06 11:04] VITALS: O2SAT 87; O2SAT 90
[2024-10-06 11:51] VITALS: BP 107/72
--- NOTE | 2024-10-06 13:54 | PTCARENOTE ---
Patient discharged home with no needs. Home O2 eval done by resp prior to discharge, patient states he has oxygen at home and is okay to be transported home on RA. Vitals taken by tech within 4 hours. IV removed by this RN, discharge instructions
reviewed with patient by this RN, patient verbalizes understanding. Patient dressed and gathered belongings independently in room, transported home by son, taken down to son's car at [facility] via staff escort and wheelchair.
--- NOTE | 2024-10-06 14:14 | W.DCSUMMARY ---
Discharge Summary
Discharge Data
Date of Admission: 10/02/24
Date of Discharge: 10/06/24
-
Pending Results: No
Hospital Course
Primary diagnoses:
Acute on chronic hypoxic respiratory failure due to acute COVID infection
Secondary diagnoses:
Hypothyroidism, h/o Graves' disease
h/o prostate CA s/p prostatectomy
Consultants:
Pulmonary
Imaging:
CXR: No acute cardiopulmonary process.
79 y/o M with h/o COPD on 3L nocturnal home O2, R diaphragm paralysis who presented with fever at home, hypoxia, respiratory distress and was found to have acute COVID 19 infection. His symptoms began approximately 24 hours prior to admission.
Chest x-ray was without infiltrates. Acute onset of symptoms starting about 24 hours ago. He was placed on BIPAP in ED due to rapid shallow breathing that appeared to be common for him. Patient was placed on IV Decadron and IV remdesivir. His IV
remdesivir was stopped as it did not appear to provide any benefit. The patient was weaned to 4L NC O2 and was cleared for discharge by pulmonary to continue weaning oxygen at home. He was given a short prednisone taper on discharge.
Discharge Plan
-
Patient Disposition: Home (Routine Discharge)
Discharge Diagnosis/Procedures: Acute on chronic hypoxic respiratory failure due to acute COVID infection
Condition: Good
Diet: Regular
Activity: As tolerated
Driving Restrictions: As prior to admission
Activity Restrictions/Additional Instructions:
Please wear your NC O2 around the clock and wean as tolerated to maintain pulse ox 90-91%
Referrals:
Chelsey Mak MD [Family Provider] - in less than 1 week
Prescriptions:
New
prednisone 10 mg tablet
10 mg PO DAILY Qty: 9 0RF
Rx Instructions:
Taper: 20mg daily x 3 days, 10mg daily x 3 days
Continued
albuterol sulfate 90 mcg/actuation Hfa Aerosol Inhaler
2 puff INHALATION R Q6HPRN PRN (Reason: sob)
levothyroxine [Synthroid] 112 mcg Tablet
112 mcg PO DAILY
Asmanex Twisthaler 220 mcg/ actuation (120) Aerosol Powdr Breath Activated
2 inh INHALATION R BID
calcium carbonate-vitamin D3 [Calcium 600 + D(3)] 600 mg-10 mcg (400 unit) Tablet
1 tab PO NOON Qty: 0
guaifenesin [Mucinex] 1,200 mg Tablet Extended Release 12hr
600 mg PO BIDPRN PRN (Reason: cough)
coQ10 (ubiquinol) [Qunol Moi CoQ10] 100 mg Capsule
100 mg PO NOON Qty: 0
Stiolto Respimat 2.5-2.5 mcg/actuation Mist
2 puff INHALATION R QPM
rtdqh-bw-1-vyo-qwz-hgsoioi-ast [[place]-3 Krill Oil] 713-30-38-50 mg Capsule
1 cap PO QPM Qty: 0
Centrum Silver Men 956-26-220-300 mcg Tablet
1 tab PO NOON
Discontinued
ibuprofen 200 mg Tablet
400 mg PO DAILYPRN PRN (Reason: mild pain)
Discharge Orders:
Discharge Patient (As Directed); Ordered 10/06/24
Ordered By: Jomar Michelle
Discharge Date and Time
Discharge Date/Time: 10/06/24 14:03
Print Language: CHINESE
== END 2024-10-06 14:03 | disposition home or self-care (01) | DRG 177 ==
LOC: 2 NORTH 20:17
PROVIDERS: Family Medicine; Student in an Organized Health Care Education/Training Program; ADMITTING PHYSICIAN Internal Medicine; ATTENDING PHYSICIAN Internal Medicine; CONSULT PHYSICIAN Internal Medicine; EMERGENCY PHYSICIAN Student in an Organized Health Care Education/Training Program; FAMILY PHYSICIAN Internal Medicine
DX: U07.1 COVID-19 (principal); J96.21 Acute and chronic respiratory failure with hypoxia; Z11.52 Encounter for screening for COVID-19; F17.200 Nicotine dependence, unspecified, uncomplicated; J44.9 Chronic obstructive pulmonary disease, unspecified; E03.9 Hypothyroidism, unspecified; E05.00 Thyrotoxicosis with diffuse goiter without thyrotoxic crisis or storm; Z85.46 Personal history of malignant neoplasm of prostate
CPT/HCPCS: 71046; 80048; 80053; 82248; 82805; 83615; 83735; 84145; 84443; 85025; 85027; 85610; 87502; 87811; 94640; 94660; 94761; 96374; 97116; 97162; 99285; J0248

== ENCOUNTER → 2024-12-21 11:16 | Outpatient (REF) | payer OTHER, SELFPAY | LOC: HWRCS 11:16 | PROVIDERS: ATTENDING PHYSICIAN Internal Medicine; FAMILY PHYSICIAN Internal Medicine | DX: I35.0 Nonrheumatic aortic (valve) stenosis (principal); I35.1 Nonrheumatic aortic (valve) insufficiency; I36.1 Nonrheumatic tricuspid (valve) insufficiency | CPT/HCPCS: 93306 ==

== ENCOUNTER → 2024-12-31 12:28 | Outpatient (REF) | payer OTHER, SELFPAY | LOC: EMG 12:28 | PROVIDERS: ATTENDING PHYSICIAN Orthopaedic Surgery; FAMILY PHYSICIAN Internal Medicine | DX: R20.0 Anesthesia of skin (principal) | CPT/HCPCS: 95886; 95909 ==

== ENCOUNTER → 2025-01-21 06:37 | Outpatient (REF) | payer OTHER, SELFPAY | LOC: MRI 06:37 | PROVIDERS: ATTENDING PHYSICIAN Orthopaedic Surgery; FAMILY PHYSICIAN Internal Medicine | DX: M54.12 Radiculopathy, cervical region (principal) | CPT/HCPCS: 72141 ==

== ENCOUNTER → 2025-03-12 11:22 | Outpatient (REF) | payer OTHER, SELFPAY | LOC: HWRAD 11:22 | PROVIDERS: ATTENDING PHYSICIAN Internal Medicine | DX: R05.3 Chronic cough (principal) | CPT/HCPCS: 71046 ==

== ENCOUNTER → 2025-05-04 15:15 | Outpatient (REF) | payer OTHER, SELFPAY | LOC: RAD 15:15 | PROVIDERS: ATTENDING PHYSICIAN Ophthalmology; FAMILY PHYSICIAN Internal Medicine | DX: G45.3 Amaurosis fugax (principal) | CPT/HCPCS: 93880 ==

== ENCOUNTER → 2025-07-28 13:03 | Outpatient (REF) | payer OTHER, SELFPAY | LOC: HWRCS 13:03 | PROVIDERS: ATTENDING PHYSICIAN Internal Medicine; FAMILY PHYSICIAN Internal Medicine | DX: I35.0 Nonrheumatic aortic (valve) stenosis (principal); I35.1 Nonrheumatic aortic (valve) insufficiency; I36.1 Nonrheumatic tricuspid (valve) insufficiency; I34.2 Nonrheumatic mitral (valve) stenosis | CPT/HCPCS: 93306 ==

== ENCOUNTER → 2025-08-05 11:18 | Outpatient (REF) | payer OTHER, SELFPAY | LOC: HWRAD 11:18 | PROVIDERS: ATTENDING PHYSICIAN Internal Medicine | DX: N50.89 Other specified disorders of the male genital organs (principal) | CPT/HCPCS: 76870; 93976 ==

== ENCOUNTER 2025-08-10 15:26 | Emergency (ER) | payer OTHER, SELFPAY ==
[2025-08-10 15:28] VITALS: BP 101/65
[2025-08-10 15:33] LABS: Glucose - Point of Care 95 mg/dl (70-99)
[2025-08-10 15:44] LABS: Hematocrit 50.4 % (39.0-52.0); Hemoglobin 17.2 g/dL (13.0-18.0); Mean Corp Hgb Conc. 34.1 g/dL (33.0-37.0); Mean Corpuscular Volume 95.6 fL (80.0-94.0); Nucleated Red Blood Cells % 0 % (-); Platelet Count 139 10^3/uL (130-400); Red Cell Dist. Width 11.8 % (11.5-14.5)
[2025-08-10 15:45] VITALS: BP 114/71
[2025-08-10 16:00] VITALS: BP 114/69
--- NOTE | 2025-08-10 16:01 | ED.GENMED ---
History of Present Illness
General
Chief Complaint: Fainting/Passed Out
Time Seen by Provider: 08/10/25 15:45
History of Present Illness
History of Present Illness:
Patient is a 39-year-old man presenting to the emergency department after syncopal event. Patient was a rapid response. Patient was waiting for his turn a CT scan as he has an upcoming TAVR. Patient states that it was shortly after his IV
placement he was sitting. He became lightheaded dizzy and clammy. He denies any chest pain palpitations or shortness of breath. Upon nurses arrival patient did have a syncopal event. He was pale and diaphoretic. Accu-Chek was normal. Patient
this time denies any complaints.
Past History
Past History
ED Past Medical History: COPD, Other (Trauma to left chest wall), Other (erectile dysfunction) and Other (Grave's disease)
ED Past Surgical History: Urological
Patient has exhibited threatening behavior?: No
PSI?: No
Social History
Tobacco: Smoker
Alcohol: Occasional
Personal:
Living: with family
Employment: Employed
Family History
Family History: Other (reviewed and noncontributory)
Phy Exam
Physical Exam
Physical Exam:
GENERAL: in no acute distress
HEENT: normocephalic, extraocular movements intact, moist oral mucosa
NECK: normal inspection
RESPIRATORY: no respiratory distress, clear to auscultation bilaterally
CARDIOVASCULAR: regular rate and rhythm
ABDOMEN/: soft, non-distended, non-tender to palpation, no rebound or guarding
EXTREMITIES: non-tender, no edema/swelling
NEUROLOGIC: awake and alert, moves all extremities
SKIN: warm
Course
Orders/Labs/Results
Orders:
Orders
08/10/25 15:28
EKG [Electrocardiogram (*1)] Urgent
Reason for Study: Chest Pain
EKG- Treatment ONCE
08/10/25 15:31
Complete Blood Count/With Diff Urgent
Comprehensive Metabolic Panel Urgent
Troponin I Urgent
08/10/25 16:18
[address] TAVR Urgent
Comment:
Reason For Exam: TAVR
Abnormal Lab Results
08/10/25
15:31
MCV 95.6 H fL
(80.0-94.0)
MCH 32.6 H pg
(27.0-31.0)
MPV 10.5 H fL
(7.4-10.4)
Sodium 134 L mmol/L
(135-145)
Chloride 97 L mmol/L
(98-107)
Carbon Dioxide 32 H mmol/L
(22-30)
Glucose 103 H mg/dl
(70-99)
08/10/25 15:31
08/10/25 15:31
Vital Signs
Initial and Last Documented VS:
Initial Vital Signs
Temp Pulse Resp BP Pulse Ox
97.9 F 78 18 101/65 94
08/10/25 15:28 08/10/25 15:28 08/10/25 15:28 08/10/25 15:28 08/10/25 15:28
Last Documented Vital Signs
Temp Pulse Resp BP Pulse Ox
97.9 F 78 18 101/65 94
08/10/25 15:28 08/10/25 15:28 08/10/25 15:28 08/10/25 15:28 08/10/25 16:04
MDM/Problems Addressed
Differential Diagnosis Includes:
Patient is a 80-year-old man presenting to the emergency department after syncopal event while sitting waiting his turn for CT scan. On arrival vitals are notable for blood pressure of 101/65 though upon reassessment it did improve. Physical exam
is otherwise reassuring. Considered vagal response given that it he had a prodrome and occurred after IV placement. Consider cardiac etiology especially given patient's history though history less likely. Accu-Chek was normal. Will check blood
work. EKG per my interpretation normal sinus rhythm. I did recommend admission for observation given the syncopal event with patient's history though patient is adamantly against it. I did discuss with cardiology who will evaluate patient.
*Pulse Oximetry
SaO2: 94
Oxygen Mode of Delivery: Room air
Patient hypoxic: no
*Critical Care Note
Total Time (30-74mins, 75-104mins- exclusive of procedures): Not Applicable
Update Note
Update Note:
Cardiology evaluated patient. In agreement likely vasovagal response. Patient ambulatory without symptoms. Will discharge at this time.
ED Attending Note
-
Portions of this chart may have been created with voice recognition software.� Occasional wrong word or��sound alike� substitutions may have occurred due to the inherent limitations of voice recognition software.
Discharge Plan
Departure
Patient Disposition: Home (Routine Discharge)
Date of Disposition: 08/10/25
Time of Disposition: 17:37
Patient with high blood pressure during this ER visit?: No
Discharge Problem:
Vasovagal near-syncope
Instructions: Syncope (fainting) (DC)
Prescriptions:
No Action
albuterol sulfate 90 mcg/actuation Hfa Aerosol Inhaler
2 puff INHALATION R Q6HPRN PRN (Reason: sob)
levothyroxine [Synthroid] 112 mcg Tablet
112 mcg PO DAILY
Asmanex Twisthaler 220 mcg/ actuation (120) Aerosol Powdr Breath Activated
2 inh INHALATION R BID
calcium carbonate-vitamin D3 [Calcium 600 + D(3)] 600 mg-10 mcg (400 unit) Tablet
1 tab PO NOON Qty: 0
guaifenesin [Mucinex] 1,200 mg Tablet Extended Release 12hr
600 mg PO BIDPRN PRN (Reason: cough)
coQ10 (ubiquinol) [Qunol Moi CoQ10] 100 mg Capsule
100 mg PO NOON Qty: 0
Stiolto Respimat 2.5-2.5 mcg/actuation Mist
2 puff INHALATION R QPM
rghun-zi-3-jte-ecl-vodwirh-ast [[place]-3 Krill Oil] 562-90-93-50 mg Capsule
1 cap PO QPM Qty: 0
Centrum Silver Men 592-10-577-300 mcg Tablet
1 tab PO NOON
prednisone 10 mg tablet
10 mg PO DAILY Qty: 9 0RF
Rx Instructions:
Taper: 20mg daily x 3 days, 10mg daily x 3 days
Referrals:
Liu Graham MD [Family Provider, Cardiology]
Activity Restrictions/Additional Instructions:
You have been evaluated in the Emergency Department today for your syncopal episode. Your evaluation did not show evidence of medical conditions requiring emergent intervention at this time, however we recommend you follow up with your primary care
provider for further testing as an outpatient.
Please follow up with your primary care doctor in 2-3 days.
Return to the ER immediately for worsening or uncontrolled symptoms, headache, chest pain, shortness of breath, persistent vomiting, vision changes, recurrent fainting, or for any other concerning symptoms.
Thank you for choosing us for your care.
Discharge Date and Time
Print Language: SLOV[place]
[2025-08-10 16:06] LABS: ALT (SGPT) 17 U/L (0-50); AST (SGOT) 26 U/L (17-59); Albumin 4.5 g/dl (3.5-5.0); Alkaline Phosphatase 80 U/L (38-126); Blood Urea Nitrogen 10 mg/dl (9-20); Calcium 9.5 mg/dl (8.4-10.2); Carbon Dioxide 32 mmol/L (22-30); Chloride 97 mmol/L (98-107); Glucose 103 mg/dl (70-99); Potassium 4.0 mmol/L (3.5-5.1); Sodium 134 mmol/L (135-145); Total Protein 6.9 g/dl (6.3-8.2); eGFR > 60.00
[2025-08-10 16:08] LABS: Troponin I 0.017 ng/ml
[2025-08-10 16:19] VITALS: BP 115/73
--- NOTE | 2025-08-10 16:25 | CON.CAR ---
Addendum entered and electronically signed by Maikol Plascencia MD 08/10/25 17:03:
I saw and evaluated the patient, and I provided the substantive portion of the medical decision making.
I reviewed and agree with the note by Ms Temple and it accurately reflects our care.
I personally performed the medical decision making of the this encounter and my assessment and plan is below:
It appears that his fainting was likely from vasovagal syncope.
Please obtain TAVR CT.
He has planned coronary angiography next week.
No further testing or medications at this point from a cardiovascular perspective.
Original Note:
Consultation
Consultation Request
Date/Time Consultation Requested: 08/10/2025 1600
Date/Time Consultation Performed: 08/10/2025 1615
Requesting Provider: Dr. Wong
Performing Provider: YUNIOR Graves for Dr. Plascencia
Reason for Consultation: Syncope
Medical History
-
Chief Complaint: Syncope
History of Present Illness:
Carlos Zuniga is an 80-year-old male (known to Dr. 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
and CT scan. 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 They were having challenges with IV placement. He looked down at the site and then felt dizziness with associated lightheadedness and clamminess.
He then had a syncopal event. Blood glucose in the 90s. Cardiology was asked to consult for syncope evaluation. He denies chest pain, dizziness, and worsened shortness of breath from his baseline
Past Medical History
Past Medical History: Arrhythmias (Severe aortic stenosis, mild mitral stenosis), Cancer (Prostate), CHF, COPD and Other (Pulmonary hypertension)
Past Surgical History: Orthopedic (Prostatectomy)
Social History
Tobacco: Former Smoker
Alcohol: None
Personal:
Living: With Family
Employment: Retired
Family History
Family History: Reviewed & Not Pertinent
Allergies / Home Medications
Allergy/AdvReac Type Severity Reaction Status Date / Time
No Known Allergies Allergy Verified 08/10/25 15:34
�Medication �Instructions �Recorded �Confirmed �Type
albuterol sulfate 90 mcg/actuation 2 puff inhalation R Q6HPRN PRN sob 09/27/23 10/02/24 History
aerosol inhaler
calcium 600 mg (as 1 tab PO NOON ##0 09/27/23 10/02/24 History
carbonate)-vitamin D3 10 mcg (400
unit) tablet (Calcium 600 + D(3))
coQ10 (ubiquinol) 100 mg capsule 100 mg PO NOON ##0 09/27/23 10/02/24 History
(Qunol Moi CoQ10)
guaifenesin 1,200 mg tablet, 600 mg PO BIDPRN PRN cough 09/27/23 10/02/24 History
extended release 12 hr (Mucinex)
krill 350 mg-omega-3 90 mg-dha 24 1 cap PO QPM ##0 09/27/23 10/02/24 History
mg-epa 50 rh-voowohy-ytvmh capsule
([place]-3 Krill Oil)
levothyroxine 112 mcg tablet 112 mcg PO DAILY 09/27/23 10/02/24 History
(Synthroid)
mometasone 220 mcg/actuation(120 2 inh inhalation R BID 09/27/23 10/02/24 History
doses)breath activated powder
inhaler (Asmanex Twisthaler)
ryniadyc-hk-dovxu 300 mcg-K 60 1 tab PO NOON supplement 09/27/23 10/02/24 History
mcg-lycop 600 mcg-lutein 300 mcg
tablet (Centrum Silver Men)
tiotropium 2.5 mcg-olodaterol 2.5 2 puff inhalation R QPM 09/27/23 10/02/24 History
mcg/actuation mist for inhalation
(Stiolto Respimat)
prednisone 10 mg tablet 10 mg PO DAILY #9 tabs 10/06/24 Rx
Review of Systems
-
History Source: Patient
All other systems: Negative unless noted
Constitutional: No Symptoms
EENT: No Symptoms
Respiratory: No Symptoms
Cardiac: No Symptoms
Abdomen/GI: No Symptoms
: No Symptoms
Musculoskeletal: No Symptoms
Skin: No Symptoms
Neurological: No Symptoms
Endocrine: No Symptoms
Hematologic/Lymphatic: No Symptoms
Physical Exam
Vital Signs
Temp Pulse Resp BP Pulse Ox
97.9 F 78 18 101/65 94
08/10/25 15:28 08/10/25 15:28 08/10/25 15:28 08/10/25 15:28 08/10/25 16:04
Lab Results
08/10/25 15:31
08/10/25 15:31
Troponin I 0.017 ng/ml 08/10/25 15:31
Physical Exam
General: Well Developed, Well Nourished, No Apparent Distress and Comfortable
HEENT: Normocephalic, Anicteric and Moist Mucous Membranes
Respiratory: Clear and Non Labored Respirations
Cardiac: S1/S2, Regular Rhythm and Murmur (III/)
Breast: Deferred by me
GI: Soft, Non Tender, Non Distended and Normal Bowel Sounds
Rectal: Deferred by Provider
Genito-urinary: No Costovertebral Tender
Musculoskeletal: No Clubbing and No Cyanosis
Skin: Warm and Dry
Neuro: AO x 3
Hematologic/Lymphatic: No Lymphadenopathy
Psych: Calm
Impression / Plan
-
I/P: 80M with severe aortic stenosis, mild AR, mild MS, mild/moderate TR, former tobacco, COPD, and nocturnal O2 (3L NC) presented with syncope in CT
Primary web production artist: Dr. Munroe
Vasovagal syncope
- Long history of needle phobia
- EKG without ischemia
- Troponin stable
HFpEF, chronic, stable
Aortic stenosis, severe, TAVR CT will be completed while he is here
COPD, chronic, no acute exacerbation
Prior tobacco use, continued cessation recommended
Prostate cancer status post robotic prostatectomy 2011
Data Reviewed
-
EKG: Report Reviewed by me
Medical Tests (Nuc Med, Echo etc): Report Reviewed by me
Labs: Labs Reviewed by me
Old Records: Reviewed
[2025-08-10 17:40] VITALS: BP 108/69
== END 2025-08-10 18:10 | disposition home or self-care (01) ==
LOC: EMR 15:26
PROVIDERS: Student in an Organized Health Care Education/Training Program; EMERGENCY PHYSICIAN Student in an Organized Health Care Education/Training Program; FAMILY PHYSICIAN Student in an Organized Health Care Education/Training Program
DX: R55 Syncope and collapse (principal); I35.0 Nonrheumatic aortic (valve) stenosis; I08.3 Combined rheumatic disorders of mitral, aortic and tricuspid valves; I27.20 Pulmonary hypertension, unspecified; I50.32 Chronic diastolic (congestive) heart failure; J44.9 Chronic obstructive pulmonary disease, unspecified; E05.00 Thyrotoxicosis with diffuse goiter without thyrotoxic crisis or storm; Z87.891 Personal history of nicotine dependence; Z99.81 Dependence on supplemental oxygen; Z85.46 Personal history of malignant neoplasm of prostate; Z90.79 Acquired absence of other genital organ(s)
CPT/HCPCS: 99284; 74174; 75572; 80053; 82962; 84484; 85025; 93005; Q9967

== ENCOUNTER 2025-08-18 07:28 | Day surgery (SDC) | payer OTHER, SELFPAY ==
[2025-08-18] VITALS (16 sets, daily range): BP systolic 104–125; BP diastolic 60–88; BMI 28.2
[2025-08-18] MEDS: LOW STRENGTH ASPIRIN 81 MG PO (08:12)
--- NOTE | 2025-08-18 10:21 | ITS.CL.CATH ---
Technician Anatomic Pathology - Catheterization
Cardiac Catheterization
Procedure Report:
CARDIAC CATHETERIZATION REPORT
Date of Procedure: 08/18/2025
Referring: YUNIOR Graves
Indication: Severe symptomatic aortic valve stenosis.
PROCEDURE:
1. Right heart catheterization.
2. Coronary angiography.
3. Left heart catheterization.
4. Aortic valve interrogation.
5. Mitral valve interrogation.
6. Left ventriculography.
A total of 31 minutes of procedural/moderate sedation was utilized. An independent medical records receptionist was present to assist with and help manage the patient's level of consciousness and physiologic status.
ACCESS:
1. 6 Taiwanese right common femoral artery using a modified Seldinger technique with a micropuncture kit under ultrasound guidance.
2. 5 Taiwanese right common femoral vein using a modified Seldinger technique with a micropuncture kit under ultrasound guidance.
CATHETERS:
1. 5 Taiwanese balloon wedge.
2. 5 Taiwanese JL 3.5.
3. 5 Taiwanese JR4.
4. 6 Taiwanese Axel dual-lumen pigtail.
HEMODYNAMIC DATA
Weight (kg): 77.6
AO (s/d/x, mmHg): 94/57/73
LV (s/x, mmHg): 140/15 (A wave to 30)
PCWP (a/v/x, mmHg): 16/18/15
PA (s/d/x, mmHg): 41/19/26
RV (s/x, mmHg): 42/9
RA (a/v/x, mmHg): 07/27/10
SVC SvO2 (%): 58.3
IVC SvO2 (%): Not obtained.
RA SvO2 (%): Not obtained.
RV SvO2 (%): Not obtained.
PA SvO2 (%): 63.1
SaO2 (%): 88.5 (3 L nasal cannula)
Hbg (g/dL): 15.6
YONATAN
CO (L/min): 3.42
CI (L/min/m2): 1.85
Thermodilution
CO (L/min): Not performed.
CI (L/min/m2): Not performed.
TPG (mmHg): 11
PVR (Robles Units): 3.2
SVR (dynes*seconds*cm^-5): 1474
AVO2 Diff (Volume %): 5.39
Cardiac Power Output (pham): 0.55 (MAP * CO)/451 (normal 0.5 - 0.7; 0.4 - 0.6 in the elderly)
Cardiac Power Index (pham/m2): 0.30 (MAP * CI)/451
Tyler: 2.2 (PAs-PAd)/RA
AV gradient (x, mmHg): 30.4
AV area (cm2): 0.57
MV gradient (x, mmHg): 3.8
MV area (cm2): 3.0
LEFT VENTRICULOGRAPHY: Performed in an KAISER projection. Normal left ventricular size with hyperdynamic systolic function and no regional wall motion abnormalities. Left ventricular ejection fraction is estimated at 75%. There is dense mitral
annular calcification but no evidence of mitral valve regurgitation. There is dense aortic valve calcification. There is mild aortic valve insufficiency.
AORTOGRAPHY: Not performed.
CORONARY ANGIOGRAPHY
Dominance: Right.
Left Main: Normal size, bifurcating vessel. There is no coronary artery disease.
LAD: Large size vessel giving rise to 3 diagonals before wrapping around the apex. There are minor luminal irregularities with notable calcification in the mid vessel spanning the origin of D2.
Ramus: Congenitally absent.
Circumflex: Normal size, nondominant vessel that gives rise to 3 obtuse marginals. There are minor luminal irregularities.
RCA: Small to medium size, dominant vessel. There is no coronary artery disease.
INTERVENTIONS
None.
Closure Device: Manual pressure for the right common femoral artery and vein.
Radiation dose (mGy): 603.87
DAP (cm2.Gy): 47.0119
Fluoroscopy time (minutes): 13.3
CONCLUSIONS:
1. Right dominant circulation with external calcification and minor internal luminal irregularities in the coronary tree.
2. Mildly elevated filling pressures (LVEDP = 15 mmHg, PCWP = 15 mmHg at 77.6 kg) with evidence of diastolic dysfunction (A wave to 30 mmHg).
3. 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
4. Severe, likely low-flow, low gradient aortic valve stenosis (DONELL = 0.57 cm�, mean gradient 30.4 mmHg, stroke-volume index = 22.5 mL/m� with a heart rate of 82 bpm).
RECOMMENDATIONS:
1. Expectant management after cardiac catheterization via right common femoral approach.
2. Limited weight bearing for one week.
3. Continue GDMT/OMT as hemodynamics will tolerate.
4. Continue TAVR evaluation.
5. The patient would likely benefit from SGLT2i given diastolic dysfunction.
Copy to: Willis Munroe M.D., Ph.D., YUNIOR Graves, Chelsey Mak M.D.
Dony Pierson, , FACC, FACP
[2025-08-18] MEDS: NSS 350 IV (11:21)
== END 2025-08-18 13:30 | disposition home or self-care (01) ==
LOC: CATH 07:28
PROVIDERS: ATTENDING PHYSICIAN Internal Medicine Cardiovascular Disease; FAMILY PHYSICIAN Internal Medicine; OTHER PHYSICIAN Internal Medicine
DX: I35.2 Nonrheumatic aortic (valve) stenosis with insufficiency (principal); I34.81 Nonrheumatic mitral (valve) annulus calcification; I27.20 Pulmonary hypertension, unspecified; I50.32 Chronic diastolic (congestive) heart failure; J44.9 Chronic obstructive pulmonary disease, unspecified; Z87.891 Personal history of nicotine dependence; Z79.890 Hormone replacement therapy; Z79.899 Other long term (current) drug therapy; E03.9 Hypothyroidism, unspecified
CPT/HCPCS: 99152; 99153; 93460; C1769; C1894; Q9967

== ENCOUNTER 2025-09-01 17:13 | Emergency (ER) | payer OTHER, SELFPAY ==
[2025-09-01 17:18] VITALS: BP 114/69
[2025-09-01 17:55] LABS: Hematocrit 49.7 % (39.0-52.0); Hemoglobin 17.1 g/dL (13.0-18.0); Mean Corp Hgb Conc. 34.4 g/dL (33.0-37.0); Mean Corpuscular Volume 95.2 fL (80.0-94.0); Nucleated Red Blood Cells % 0 % (-); Platelet Count 144 10^3/uL (130-400); Red Cell Dist. Width 11.8 % (11.5-14.5)
[2025-09-01 18:06] LABS: ALT (SGPT) 16 U/L (0-50); AST (SGOT) 27 U/L (17-59); Albumin 4.6 g/dl (3.5-5.0); Alkaline Phosphatase 88 U/L (38-126); Blood Urea Nitrogen 20 mg/dl (9-20); Calcium 9.3 mg/dl (8.4-10.2); Carbon Dioxide 30 mmol/L (22-30); Chloride 96 mmol/L (98-107); Glucose 100 mg/dl (70-99); Potassium 4.4 mmol/L (3.5-5.1); Sodium 134 mmol/L (135-145); Total Protein 7.2 g/dl (6.3-8.2); eGFR > 60.00
[2025-09-01 18:17] LABS: Troponin I 0.021 ng/ml
[2025-09-01 19:42] VITALS: BP 134/76
[2025-09-01 19:47] VITALS: BMI 26.7
[2025-09-01 20:00] VITALS: BP 108/66
[2025-09-01 21:00] VITALS: BP 117/57
[2025-09-01 21:44] LABS: Lipase 120 U/L (23-300)
[2025-09-01 22:00] VITALS: BP 101/62
[2025-09-01 22:16] LABS: Troponin I 0.018 ng/ml
--- NOTE | 2025-09-01 23:16 | ED.GENMED ---
History of Present Illness
General
Chief Complaint: Chest Pain
Source: patient and spouse
Time Seen by Provider: 09/01/25 19:57
History of Present Illness
History of Present Illness:
Note:
CHIEF COMPLAINT(S)
Chest pain
HISTORY OF PRESENT ILLNESS
The patient is an 80-year-old male presenting with chest pain that began in conjunction with stomach discomfort around mid-morning. The chest pain followed the stomach symptoms and is localized to the mid-chest region. He describes the pain as
squeezing, exacerbated by deep breathing, and without the sensation of nausea. The pain has slightly improved but persists, previously being more intense for a couple of hours before experiencing some relief. The patients discomfort is further
provoked when exposed to bright lights, liss to vehicle lights. He reports consuming licorice and unripe bananas the previous night followed by his regular morning meal, but he had already been experiencing stomach issues prior to consuming food.
The pain appears constant and does not fluctuate in intensity, and he denies experiencing breathlessness except when his oxygen saturation is low due to a paralyzed diaphragm. The patient receives supplemental oxygen at night, with a current dosage
on presentation at three liters. Additionally, the patient has a known history of a broken sternum and a potentially related diaphragmatic paralysis.
ADDITIONAL HISTORY OBTAINED FROM SOURCES OTHER THAN THE PATIENT
The medical team has reviewed previous records for a comprehensive evaluation. A thorough cardiac and abdominal investigation was conducted recently with another physician, Dr. Burch, including a detailed examination of the abdominal structures.
EXTERNAL RECORDS REVIEWED
Prior evaluations detailing a cardiac workup and gastrointestinal examinations conducted on Saturday have been noted. The heart enzyme tests conducted initially in our facility are pending a second set for confirmation. The Electrocardiogram performed
was within normal limits.
CHRONIC MEDICAL CONDITIONS SIGNIFICANTLY AFFECTING CARE
The patient has a notable history of diaphragmatic paralysis and a previously fractured sternum, which are relevant to his current presentation.
SOCIAL DETERMINANTS AFFECTING HEALTH
The patient mentioned dietary indulgences including licorice and bananas, which could potentially affect his gastric presentation.
PHYSICAL EXAM
General: Alert, cooperative.
Skin: Warm, dry.
Head: Normocephalic, atraumatic.
Neck: Supple, trachea midline.
Eyes, Ears, Nose, Mouth, and Throat: Oral mucosa moist.
Cardiovascular: Heart sounds regular with a systolic ejection murmur noted.
Respiratory: Lungs are clear; respirations are non-labored.
Gastrointestinal: Abdomen soft, mild epigastric tenderness
Back: Normal range of motion, Normal alignment.
Musculoskeletal: Normal range of motion, normal strength.
Neurological: Alert and oriented to person, place, time, and situation, No focal neurological deficit observed.
Psychiatric: Cooperative, appropriate mood & affect.
PROBLEM LIST
- Acute chest pain
- Diaphragmatic paralysis
- Prior sternum fracture
PLAN
1. Continue monitoring cardiac enzymes; repeat the heart enzyme test to identify potential myocardial damage.
2. Obtain abdominal imaging to evaluate upper abdominal structures, including the pancreas and aorta, to explore potential gastrointestinal causes for stomach and chest pain.
3. Continue reviewing the patients previous medical records to identify any contributing factors related to the current presentation and ongoing treatment efficacy.
DIFFERENTIAL DIAGNOSIS
The Differential Diagnosis includes, in no particular order and is not limited to:
1. Acute coronary syndrome
2. Gastroesophageal reflux disease
3. Costochondritis
4. Pulmonary embolism
5. Aortic dissection
6. Peptic ulcer disease
7. Pneumonia
8. Pancreatitis
9. Gastritis
10. Esophageal spasm
EKG
My independent EKG interpretation is:
- Rhythm: Normal
- Heart Rate: Not specified
- Intervals: Normal
- [place]: Normal
- Abnormalities: No ischemic changes
Disposition:
SUMMARY OF ENCOUNTER
The patient is an 80-year-old male presenting with pain in the epigastric region and lower chest. The primary concern was to rule out a cardiac event. An EKG was performed, which did not indicate ischemia, and troponin levels were checked twice,
both returning negative. A CBC indicated a slightly elevated white blood cell count at 11. Chemistry panels were within normal limits. A CT scan of the abdomen was conducted due to upper gastric pain and revealed mild stranding along the pancreatic
head and the second portion of the duodenum, suggestive of possible pancreatitis or duodenitis. However, the lipase level was normal. Upon reassessment, the patient reported feeling much better. Given the persistent symptomatology over several hours
with negative troponin tests, acute coronary syndrome is not suspected. The patient appears well and was advised to follow up with his primary doctor and correctional program officer.
DISPOSITION
Discharge
ASSESSMENT
The patients epigastric and chest pain is unlikely to be of cardiac origin, given negative cardiac markers. CT findings suggest possible mild pancreatitis or duodenitis, though the normal lipase reduces the likelihood of pancreatitis.
PLAN
The patient will follow up with a primary care doctor and a correctional program officer for ongoing evaluation and management of his symptoms.
INDEPENDENT REVIEW OF LABS AND INTERPRETATION OF TESTS
My independent review of the CBC indicates a slightly elevated white blood cell count at 11.
My independent interpretation of the EKG confirms it is not ischemic.
My independent review of troponin times two confirms negative results.
My independent interpretation of the CT scan of the abdomen shows mild stranding along the pancreatic head and second portion of the duodenum, suggestive of possible pancreatitis or duodenitis.
PATIENT EDUCATION AND COUNSELING
The patient was informed about the low likelihood of a cardiac event given the negative troponin tests and non-ischemic EKG. Information was provided on the potential causes of his abdominal symptoms, such as mild pancreatitis or duodenitis, and the
need for follow-up with primary and specialty care providers.
FOLLOW-UP INSTRUCTIONS
The patient was instructed to follow up with his primary care doctor and correctional program officer.
MEDICAL DECISION MAKING
-Complexity of Data Reviewed: Chronic conditions affecting care include the patients past medical history of diaphragmatic paralysis and prior sternum fracture. Differential diagnosis considered were acute coronary syndrome, gastroesophageal reflux
disease, costochondritis, pulmonary embolism, aortic dissection, peptic ulcer disease, pneumonia, pancreatitis, gastritis, and esophageal spasm.
-Data:
Category 1
Clinical information was obtained from an independent historian. External records reviewed, noting previous cardiac workup and gastrointestinal examinations.
Category 2
My independent interpretation of the non-ischemic EKG. My independent review of the CT scan indicating possible pancreatitis or duodenitis.
-Risk:
Consideration of Admission/Observation: Escalation of care including admission/observation was considered given the complexity and risk of the patients presenting complaint, exam findings, and/or their underlying comorbidities. However, ultimately I
feel the patient is safe for outpatient management with close follow-up. Reasoning: Work-up reassuring, does not reveal any acute life/organ-threatening processes, patients symptoms well controlled upon reevaluation, reexamination is reassuring,
vitals are stable, patient agreeable with discharge, reliable for follow-up.
DIAGNOSIS
Possible mild duodenitis (ICD-10: K29.8)
Possible mild pancreatitis (ICD-10: K85.9)
Past History
Past History
ED Past Medical History: COPD, Other (Trauma to left chest wall), Other (erectile dysfunction) and Other (Grave's disease)
ED Past Surgical History: Urological
Patient has exhibited threatening behavior?: No
PSI?: No
Social History
Tobacco: Smoker
Alcohol: Occasional
Personal:
Living: with family
Employment: Employed
Family History
Family History: Other (reviewed and noncontributory)
Phy Exam
Physical Exam
Physical Exam:
.
Scores
Heart Score for Chest Pain Patients
STEMI patient?: No
History: Slightly or Non-Suspicious
ECG: Normal
Age: >/= 65 years
Risk Factors: 1 or 2 Risk Factors
Troponin: </= Normal Limit
Heart Score for Chest Pain Patients: 3
Heart Score Risk: 2.5% MACE over next 6 weeks
Course
Orders/Labs/Results
Orders:
Orders
09/01/25
Electrocardiogram (*1) Stat
Reason for Study: Chest Pain
Comment: DONE
09/01/25 17:14
EKG- Treatment ONCE
09/01/25 17:41
Complete Blood Count/With Diff Urgent
Comprehensive Metabolic Panel Urgent
Lipase Urgent
Comment: ADD ON
Troponin I Urgent
09/01/25 21:11
Add On- LAB Urgent
Tests Added?: lipase
CT Abd/pelvis W Iv Cont Urgent
Comment:
Reason For Exam: upper abd pain
09/01/25 21:46
Troponin I Urgent
Abnormal Lab Results
09/01/25
17:41
WBC 11.1 H 10^3/uL
(4.8-10.8)
MCV 95.2 H fL
(80.0-94.0)
MCH 32.8 H pg
(27.0-31.0)
MPV 11.0 H fL
(7.4-10.4)
Absolute Neuts (auto) 7.9 H 10^3/uL
(1.4-6.5)
Absolute Monos (auto) 0.9 H 10^3/uL
(0.1-0.6)
Lymphocytes % 19.5 L %
(20.5-51.1)
Sodium 134 L mmol/L
(135-145)
Chloride 96 L mmol/L
(98-107)
Glucose 100 H mg/dl
(70-99)
09/01/25 17:41
09/01/25 17:41
Vital Signs
Initial and Last Documented VS:
Initial Vital Signs
Temp Pulse Resp BP Pulse Ox
98.2 F 81 16 114/69 94
09/01/25 17:18 09/01/25 17:18 09/01/25 17:18 09/01/25 17:18 09/01/25 17:18
Last Documented Vital Signs
Temp Pulse Resp BP Pulse Ox
98.2 F 76 27 103/70 87
09/01/25 17:18 09/01/25 22:00 09/01/25 22:00 09/02/25 00:07 09/02/25 00:00
*Pulse Oximetry
SaO2: 94
Nasal Cannula flow liters per minute: 2
Oxygen Mode of Delivery: Room air
Patient hypoxic: no
*[employer] Interpretation
Rate: normal
Interpretation: normal
*Critical Care Note
Total Time (30-74mins, 75-104mins- exclusive of procedures): Not Applicable
ED Attending Note
-
Portions of this chart may have been created with voice recognition software.� Occasional wrong word or��sound alike� substitutions may have occurred due to the inherent limitations of voice recognition software.
Discharge Plan
Departure
Patient Disposition: Home (Routine Discharge)
Date of Disposition: 09/01/25
Time of Disposition: 23:23
Patient with high blood pressure during this ER visit?: No
Discharge Problem:
Epigastric abdominal pain
Instructions: Abdominal pain in adults (DC), Clear liquid diet
Prescriptions:
No Action
albuterol sulfate 90 mcg/actuation Hfa Aerosol Inhaler
2 puff INHALATION R Q6HPRN PRN (Reason: sob)
levothyroxine [Synthroid] 112 mcg Tablet
112 mcg PO DAILY
Asmanex Twisthaler 220 mcg/ actuation (120) Aerosol Powdr Breath Activated
2 inh INHALATION R BID
calcium carbonate-vitamin D3 [Calcium 600 + D(3)] 600 mg-10 mcg (400 unit) Tablet
1 tab PO NOON Qty: 0
guaifenesin [Mucinex] 1,200 mg Tablet Extended Release 12hr
600 mg PO BIDPRN PRN (Reason: cough)
coQ10 (ubiquinol) [Qunol Moi CoQ10] 100 mg Capsule
100 mg PO NOON Qty: 0
Stiolto Respimat 2.5-2.5 mcg/actuation Mist
2 puff INHALATION R QPM
ofpzl-he-1-cng-qux-cdafrht-ast [[place]-3 Krill Oil] 962-06-70-50 mg Capsule
1 cap PO QPM Qty: 0
Centrum Silver Men [id number] mcg Tablet
1 tab PO NOON
aspirin 81 mg Capsule
81 mg PO DAILY
Referrals:
UNKNOWN - PT NOT,INTERVIEWE [Family Provider]
Activity Restrictions/Additional Instructions:
Please stick to a clear liquid diet for the next 24 to 48 hours. Please see your doctor in the next 2 to 3 days for follow-up and reevaluation. Cardiology will call for follow-up as well. Return immediately for worsening pain, chest pain,
shortness of breath, weakness of any kind or any other concerns.
Interventions
Interventions:
*General Assessment Last Done: 09/01/25 19:47
*Neglect/Abuse Screening Last Done: 09/01/25 17:18
*ED COVID-19 Vaccine History Last Done: 09/01/25 19:47
*ED Influenza Vaccine History Last Done: 09/01/25 19:47
[facility] Fall Risk Assessment Tool Last Done: 09/01/25 19:49
*Risk Screen - Suicide (C-SSRS) Last Done: 09/01/25 17:18
*Nursing Disposition Last Done: 09/02/25 00:07
ED- Cardiac Assessment Last Done: 09/01/25 19:50
Discharge Date and Time
Discharge Date/Time: 09/02/25 00:08
Print Language: [place]
[2025-09-02] VITALS: BP 103/70
[2025-09-02 00:07] VITALS: BP 103/70
== END 2025-09-02 00:08 | disposition home or self-care (01) ==
LOC: EMR 17:13
PROVIDERS: Emergency Medicine; EMERGENCY PHYSICIAN Emergency Medicine
DX: R10.13 Epigastric pain (principal); J44.9 Chronic obstructive pulmonary disease, unspecified; E05.00 Thyrotoxicosis with diffuse goiter without thyrotoxic crisis or storm; J98.6 Disorders of diaphragm; F17.200 Nicotine dependence, unspecified, uncomplicated; Z79.82 Long term (current) use of aspirin
CPT/HCPCS: 99284; 74177; 80053; 83690; 84484; 85025; 93005; Q9967